=== PATIENT | female | born 1950 | race Caucasian/White ===

== ENCOUNTER 2023-05-26 13:09 | Inpatient (IN) | payer MEDICARE, OTHER ==
[~2023-05-26] VITALS: Ht 157.5 cm; Wt 66.7 kg
[2023-05-26 14:40] LABS: BASOPHILS % (AUTO) 0.5 % (0.0-2.0); EOSINOPHILS # (AUTO) 0.3 K/uL (0.0-0.7); EOSINOPHILS % (AUTO) 3.9 % (0.0-6.0); HEMATOCRIT 39 % (33-45); HEMOGLOBIN 12.9 g/dL (11.5-14.8); LYMPHOCYTES % (AUTO) 27.6 % (20.0-44.0); MEAN CORPUSCULAR HEMOGLOBIN 29 PG (26.0-33.0); MEAN CORPUSCULAR HGB CONC 33 g/dl (31.0-36.0); MEAN CORPUSCULAR VOLUME 88 fL (82-100); MONOCYTES # (AUTO) 0.7 K/uL (0.1-1.30); MONOCYTES % (AUTO) 9.7 % (2.0-12.0); NEUTROPHILS # (AUTO) 4.1 K/uL (1.8-8.9); NEUTROPHILS % (AUTO) 58.3 % (43.0-81.0); PLATELET COUNT (AUTO) 216 K/uL (150-450); RED CELL DISTRIBUTION WIDTH 14.4 % (11.5-15.0); WHITE BLOOD COUNT (AUTO) 7.1 K/uL (4.3-11.0)
[2023-05-26 14:51] LABS: CALCIUM, SERUM 9.6 mg/dL (8.5-10.1); CARBON DIOXIDE 25 mmol/L (21-32); CHLORIDE 101 mmol/L (98-107); CREATININE 0.7 mg/dL (0.6-1.3); GLUCOSE 196 mg/dL (74-106); POTASSIUM 3.8 mmol/L (3.5-5.1); SODIUM SERUM 137 mmol/L (136-145); UREA NITROGEN, BLOOD 19 mg/dL (7-18)
[2023-05-26 15:06] LABS: ALANINE AMINOTRANSFERASE 51 U/L (12-78); ALBUMIN 3.6 g/dL (3.4-5.0); ALKALINE PHOSPHATASE 79 U/L (46-116); ASPARTATE AMINOTRANSFERASE 29 U/L (15-37); BILIRUBIN,DIRECT 0.1 mg/dL (0.0-0.2); BILIRUBIN,TOTAL 0.4 mg/dL (0.2-1.0); LIPASE 22 U/L (16-77); TOTAL PROTEIN, SERUM 7.4 g/dL (6.4-8.2)
[2023-05-26 15:07] LABS: APPEARANCE,URINE CLEAR (CLEAR); BILIRUBIN,URINE NEGATIVE (NEGATIVE); BLOOD, URINE NEGATIVE Ery/uL (NEGATIVE); COLOR,URINE YELLOW (YELLOW); KETONES,URINE NEGATIVE (NEGATIVE); LEUKOCYTE ESTERASE ,URINE NEGATIVE (NEGATIVE); NITRITE, URINE NEGATIVE (NEGATIVE); PROTEIN,URINE NEGATIVE (NEGATIVE); UGLUCOSE 3+ mg/dL (NEGATIVE); UROBILINOGEN,URINE 0.2 EU/dL (0.2)
[2023-05-26 15:21] LABS: INR 0.97 (0.91-1.10); PARTIAL THROMBOPLASTIN TIME 27.1 SEC (24.3-34.3); PROTHROMBIN TIME 10.3 SECS (9.2-11.1)
[2023-05-26 15:23] LABS: ACETAMINOPHEN <10 ug/ml (10-30); ALCOHOL, BLOOD 2 mg/dL (0-10); SALICYLATE 3.8 mg/dL (2.8-20.0)
[2023-05-26] MEDS ORDERED: EMPA25TA PO (15:58)
[2023-05-26] MEDS ORDERED: BISA10SU11 RC (15:58)
[2023-05-26] MEDS ORDERED: MAGN400O6 PO (15:58)
[2023-05-26] MEDS ORDERED: GABA600T12 PO (15:58)
[2023-05-26] MEDS ORDERED: ACET-868 PO (15:58)
[2023-05-26] MEDS ORDERED: NA P133E RC (15:58)
[2023-05-26] MEDS ORDERED: FENO54TA PO (15:58)
[2023-05-26] MEDS ORDERED: INSU100V7 SQ (15:58)
[2023-05-26] MEDS ORDERED: LORA-258 PO (15:58)
[2023-05-26] MEDS ORDERED: BUSP10TA3 PO (15:58)
[2023-05-26] MEDS ORDERED: LISI10TA29 PO (15:58)
[2023-05-26] MEDS ORDERED: SERT50TA PO (15:58)
[2023-05-26] MEDS ORDERED: DOCU100C36 PO (15:58)
[2023-05-26] MEDS ORDERED: INSU100V42 SQ (15:58)
[2023-05-26] MEDS ORDERED: BENZ1LOZ58 PO (15:59)
[2023-05-26] MEDS ORDERED: MAG-5 PO (15:59)
[2023-05-26 16:36] LABS: ADD URINE CULTURE NO; BACTERIA,URINE None seen /HPF (None Seen); RBC,URINE 0-2 /HPF (0-2); SQUAMOUS EPITHELIAL CELL,UR 0-2 /HPF (None Seen); WBC,URINE 0-2 /HPF (0-3)
[2023-05-26 18:22] VITALS: BP 127/72; TEMP 97.9; O2SAT 95
[2023-05-26] MEDS ORDERED: DEXTROSE 50%-WATER 50 ML DISP.SYRIN IV PRN (19:30)
[2023-05-26] MEDS ORDERED: Z GUARD REMEDY 4 OZ OINT TP PRN (19:30)
[2023-05-26] MEDS: IV D5/0.45 NACL 1,000 ML IV PRN (19:43)
[2023-05-26] MEDS: MAG HYDROX/AL HYDROX/SIMETH 30 ML UDC PO PRN (19:45)
[2023-05-26 20:00] VITALS: BP 116/89; TEMP 98.1; O2SAT 94
[2023-05-26] MEDS: ENOXAPARIN SODIUM 40 MG/0.4 ML DISP.SYRIN SQ SCH (20:20)
[2023-05-26] MEDS: LORAZEPAM 0.5 MG TABLET PO PRN (20:50)
[2023-05-26] MEDS: BLOOD SUGAR DIAGNOSTIC 1 EACH STRIP VI SCH (21:15)
[2023-05-26] MEDS: INSULIN GLARGINE, 100 UNIT/ML CARTRIDGE SQ SCH (21:19)
[2023-05-26] MEDS: *INSULIN REGULAR(HUMULIN R)HUM 100 UNIT/ML VIAL SQ PRN (21:20)
[2023-05-26 23:16] LABS: AMPHETAMINE, URINE NEGATIVE (NEGATIVE); BARBITURATE, URINE NEGATIVE (NEGATIVE); BENZODIAZEPINE, URINE NEGATIVE (NEGATIVE); CANNABINOID, URINE NEGATIVE (NEGATIVE); COCCAINE, URINE NEGATIVE (NEGATIVE); OPIATE, URINE NEGATIVE (NEGATIVE); PHENCYCLIDINE SCREEN,URINE NEGATIVE (NEGATIVE)
[2023-05-27] MEDS: INSULIN REGULAR, HUMAN 100 UNIT/ML 3 ML VIAL SQ PRN (06:32)
[2023-05-27 06:39] LABS: BASOPHILS % (AUTO) 0.5 % (0.0-2.0); EOSINOPHILS # (AUTO) 0.4 K/uL (0.0-0.7); EOSINOPHILS % (AUTO) 6.8 % (0.0-6.0); HEMATOCRIT 37 % (33-45); HEMOGLOBIN 12.5 g/dL (11.5-14.8); LYMPHOCYTES # (AUTO) 2.3 K/uL (0.8-4.8); LYMPHOCYTES % (AUTO) 38.6 % (20.0-44.0); MEAN CORPUSCULAR HEMOGLOBIN 30 PG (26.0-33.0); MEAN CORPUSCULAR HGB CONC 34 g/dl (31.0-36.0); MEAN CORPUSCULAR VOLUME 89 fL (82-100); MONOCYTES # (AUTO) 0.7 K/uL (0.1-1.30); MONOCYTES % (AUTO) 11.5 % (2.0-12.0); NEUTROPHILS # (AUTO) 2.5 K/uL (1.8-8.9); NEUTROPHILS % (AUTO) 42.6 % (43.0-81.0); PLATELET COUNT (AUTO) 213 K/uL (150-450); RED BLOOD CELL COUNT(AUTO) 4.19 MIL/uL (4.0-5.2); RED CELL DISTRIBUTION WIDTH 14.3 % (11.5-15.0)
[2023-05-27 06:50] LABS: CHOLESTEROL 248 mg/dL (<200); HDL CHOLESTEROL 34 mg/dL (40-60); LDL 131 mg/dL (0-99); TRIGLYCERIDES 478 mg/dL (30-150)
[2023-05-27 07:00] VITALS: BP 129/104; TEMP 98.4; O2SAT 97
[2023-05-27 07:22] LABS: CALCIUM, SERUM 9.4 mg/dL (8.5-10.1); CARBON DIOXIDE 24 mmol/L (21-32); CHLORIDE 102 mmol/L (98-107); CREATININE 0.5 mg/dL (0.6-1.3); GLUCOSE 225 mg/dL (74-106); PHOSPHORUS 3.8 mg/dL (2.5-4.9); POTASSIUM 3.8 mmol/L (3.5-5.1); SODIUM SERUM 137 mmol/L (136-145); UREA NITROGEN, BLOOD 19 mg/dL (7-18)
[2023-05-27] MEDS ORDERED: busPIRone HCL 10 MG TABLET PO SCH (09:00)
[2023-05-27] MEDS: GABAPENTIN 300 MG CAPSULE PO SCH (10:04)
[2023-05-27] MEDS: busPIRone 5 MG TABLET PO SCH (10:04)
[2023-05-27] MEDS: DOCUSATE SODIUM 100 MG CAPSULE PO SCH (10:04)
[2023-05-27] MEDS: SERTRALINE HCL 50 MG TABLET PO SCH (10:04)
[2023-05-27] MEDS: LISINOPRIL (10MG) 10 MG TABLET PO SCH (10:04)
[2023-05-27] MEDS: EMPAGLIFLOZIN 25 MG TABLET PO SCH (10:07)
[2023-05-27] MEDS: ONDANSETRON HCL/PF 4 MG/2 ML VIAL IVP PRN (10:28)
[2023-05-27] MEDS: CALCIUM CARBONATE 500 MG TAB.CHEW PO SCH (14:10)
[2023-05-27 16:00] VITALS: BP 147/97; TEMP 98.6; O2SAT 97
[2023-05-27] MEDS: ATORVASTATIN 10 MG TABLET PO SCH (21:24)
[2023-05-27 21:56] VITALS: BP 137/83; TEMP 99; O2SAT 97
[2023-05-28 07:00] VITALS: BP 137/81; TEMP 97.3; O2SAT 94
[2023-05-28 16:00] VITALS: BP 166/95; TEMP 99; O2SAT 94
[2023-05-28] MEDS: ACETAMINOPHEN 325 MG TABLET PO PRN (17:29)
[2023-05-28 20:00] VITALS: BP 121/81; TEMP 97.8; O2SAT 93
[2023-05-29 08:00] VITALS: BP 116/72; TEMP 98.2; O2SAT 97
[2023-05-29 09:11] VITALS: BP 116/92
== END 2023-05-29 15:20 | DRG 641 ==
LOC: ER 13:11 → TELE 17:13 → MED 21:57
PROVIDERS: ADMIT Nurse Practitioner Acute Care; ATTEND Nurse Practitioner Acute Care
DX: R62.7 Adult failure to thrive (principal); F03.94 Unspecified dementia, unspecified severity, with anxiety; E86.0 Dehydration; E78.5 Hyperlipidemia, unspecified; F31.9 Bipolar disorder, unspecified; I10 Essential (primary) hypertension; Z79.4 Long term (current) use of insulin; Z79.899 Other long term (current) drug therapy; Z90.11 Acquired absence of right breast and nipple; F41.9 Anxiety disorder, unspecified; R10.9 Unspecified abdominal pain; Z79.84 Long term (current) use of oral hypoglycemic drugs; R53.1 Weakness; E11.65 Type 2 diabetes mellitus with hyperglycemia; Z68.26 Body mass index [BMI] 26.0-26.9, adult; E11.42 Type 2 diabetes mellitus with diabetic polyneuropathy; Z88.0 Allergy status to penicillin
CPT/HCPCS: 36415; 70450-TC; 80048-TC; 80061-TC; 80076-TC; 81001; 82962-TC; 83690-TC; 83735-TC; 84100-TC; 85025-TC; 85730-TC; 97112-TC; 97116-TC; 97530-TC; A4223; G0378; G0480; J1650; J1815; J2405; J3490

== ENCOUNTER 2023-12-14 13:01 | Inpatient (IN) | payer MEDICARE, OTHER ==
[~2023-12-14] VITALS: Ht 157.5 cm; Wt 66.2 kg
[~2023-12-14 13:01] MED LIST: ACET-868 PO; BENZ1LOZ58 PO; BISA10SU11 RC; BUSP10TA3 PO; DOCU100C36 PO; EMPA25TA PO; FENO54TA PO; GABA600T12 PO; INSU100V42 SQ; INSU100V7 SQ; LISI10TA29 PO; LORA-258 PO; MAG-5 PO; MAGN400O6 PO; NA P133E RC; SERT50TA PO
[2023-12-14 14:16] LABS: BASOPHILS % (AUTO) 0.5 % (0.0-2.0); EOSINOPHILS # (AUTO) 0.3 K/uL (0.0-0.7); EOSINOPHILS % (AUTO) 4.4 % (0.0-6.0); HEMATOCRIT 40 % (33-45); HEMOGLOBIN 13.2 g/dL (11.5-14.8); LYMPHOCYTES # (AUTO) 2.9 K/uL (0.8-4.8); LYMPHOCYTES % (AUTO) 41.2 % (20.0-44.0); MEAN CORPUSCULAR HEMOGLOBIN 27 PG (26.0-33.0); MEAN CORPUSCULAR HGB CONC 33 g/dl (31.0-36.0); MEAN CORPUSCULAR VOLUME 84 fL (82-100); MONOCYTES # (AUTO) 0.6 K/uL (0.1-1.30); MONOCYTES % (AUTO) 8.9 % (2.0-12.0); NEUTROPHILS # (AUTO) 3.2 K/uL (1.8-8.9); PLATELET COUNT (AUTO) 228 K/uL (150-450); RED BLOOD CELL COUNT(AUTO) 4.82 MIL/uL (4.0-5.2); RED CELL DISTRIBUTION WIDTH 14.5 % (11.5-15.0); WHITE BLOOD COUNT (AUTO) 7.1 K/uL (4.3-11.0)
[2023-12-14] MEDS ORDERED: INSU100I4 SQ (14:26)
[2023-12-14] MEDS ORDERED: HYDR-500 PO (14:26)
[2023-12-14] MEDS ORDERED: POVI3780 TP (14:26)
[2023-12-14] MEDS ORDERED: GLUC1KIT IJ (14:26)
[2023-12-14] MEDS ORDERED: MAG HYDROX/AL HYDROX/SIMETH 30 ML UDC PO PRN (14:30)
[2023-12-14] MEDS ORDERED: MAGNESIUM HYDROXIDE 30 ML UDC PO PRN (14:30)
[2023-12-14] MEDS: IV NS 0.9% 1,000 ML BAG IV ONE (14:30)
[2023-12-14] MEDS ORDERED: Z GUARD REMEDY 4 OZ OINT TP PRN (14:30)
[2023-12-14 14:37] LABS: LACTIC ACID 1.6 mmol/L (0.4-2.0)
[2023-12-14 15:02] LABS: APPEARANCE,URINE CLEAR (CLEAR); BILIRUBIN,URINE NEGATIVE (NEGATIVE); BLOOD, URINE NEGATIVE Ery/uL (NEGATIVE); COLOR,URINE YELLOW (YELLOW); KETONES,URINE NEGATIVE (NEGATIVE); LEUKOCYTE ESTERASE ,URINE NEGATIVE (NEGATIVE); NITRITE, URINE NEGATIVE (NEGATIVE); PH,URINE 5.5 (5.0-8.0); PROTEIN,URINE NEGATIVE (NEGATIVE); UGLUCOSE 3+ mg/dL (NEGATIVE); UROBILINOGEN,URINE 0.2 EU/dL (0.2)
[2023-12-14 15:13] LABS: ADD URINE CULTURE NO; BACTERIA,URINE None seen /HPF (None Seen); RBC,URINE 0-2 /HPF (0-2); SQUAMOUS EPITHELIAL CELL,UR 0-2 /HPF (None Seen); WBC,URINE 0-2 /HPF (0-3)
[2023-12-14 15:14] LABS: ALANINE AMINOTRANSFERASE 29 U/L (12-78); ALBUMIN 3.3 g/dL (3.4-5.0); ALKALINE PHOSPHATASE 76 U/L (46-116); ASPARTATE AMINOTRANSFERASE 23 U/L (15-37); BILIRUBIN,TOTAL 0.3 mg/dL (0.2-1.0); CALCIUM, SERUM 9.5 mg/dL (8.5-10.1); CARBON DIOXIDE 23 mmol/L (21-32); CHLORIDE 102 mmol/L (98-107); CREATININE 0.6 mg/dL (0.6-1.3); GLUCOSE 244 mg/dL (74-106); POTASSIUM 4.1 mmol/L (3.5-5.1); SODIUM SERUM 135 mmol/L (136-145); TOTAL PROTEIN, SERUM 7.7 g/dL (6.4-8.2); UREA NITROGEN, BLOOD 26 mg/dL (7-18)
[2023-12-14] MEDS ORDERED: NA PHOS,M-B/NA PHOS,DI-BA 1 EA ENEMA RC PRN (17:00)
[2023-12-14] MEDS ORDERED: busPIRone HCL 10 MG TABLET PO SCH (17:00)
[2023-12-14] MEDS: SERTRALINE HCL 50 MG TABLET PO SCH (17:00)
[2023-12-14] MEDS ORDERED: BISACODYL SUPP (10 MG) 10 MG/SUPP.RECT SUPP.RECT RC PRN (17:00)
[2023-12-14] MEDS: BLOOD SUGAR DIAGNOSTIC 1 EACH STRIP VI SCH (17:30)
[2023-12-14] MEDS ORDERED: DEXTROSE 50%-WATER 50 ML DISP.SYRIN IV PRN ×2 (17:30)
[2023-12-14] MEDS ORDERED: INSULIN REGULAR, HUMAN 100 UNIT/ML 3 ML VIAL SQ PRN (17:30)
[2023-12-14] MEDS: BLOOD SUGAR DIAGNOSTIC 1 EACH STRIP IN SCH (17:30)
[2023-12-14 20:00] VITALS: BP 127/85; TEMP 98.1; O2SAT 93
[2023-12-14] MEDS: LORAZEPAM 0.5 MG TABLET PO PRN (20:34)
[2023-12-14] MEDS: INSULIN REGULAR, HUMAN 100 UNIT/ML 3 ML VIAL SQ PRN (21:45)
[2023-12-15] MEDS: ACETAMINOPHEN 325 MG TABLET PO PRN ×2 (00:01→19:48)
[2023-12-15] MEDS: IV NS 0.9% 1,000 ML IV PRN (01:23)
[2023-12-15 06:58] LABS: BASOPHILS % (AUTO) 0.4 % (0.0-2.0); EOSINOPHILS # (AUTO) 0.4 K/uL (0.0-0.7); EOSINOPHILS % (AUTO) 5.4 % (0.0-6.0); HEMATOCRIT 38 % (33-45); HEMOGLOBIN 12.2 g/dL (11.5-14.8); LYMPHOCYTES # (AUTO) 3.9 K/uL (0.8-4.8); LYMPHOCYTES % (AUTO) 52.1 % (20.0-44.0); MEAN CORPUSCULAR HEMOGLOBIN 27 PG (26.0-33.0); MEAN CORPUSCULAR HGB CONC 32 g/dl (31.0-36.0); MEAN CORPUSCULAR VOLUME 84 fL (82-100); MONOCYTES # (AUTO) 0.7 K/uL (0.1-1.30); MONOCYTES % (AUTO) 9.5 % (2.0-12.0); NEUTROPHILS # (AUTO) 2.4 K/uL (1.8-8.9); NEUTROPHILS % (AUTO) 32.6 % (43.0-81.0); PLATELET COUNT (AUTO) 214 K/uL (150-450); RED BLOOD CELL COUNT(AUTO) 4.54 MIL/uL (4.0-5.2); RED CELL DISTRIBUTION WIDTH 14.1 % (11.5-15.0); WHITE BLOOD COUNT (AUTO) 7.5 K/uL (4.3-11.0)
[2023-12-15 07:17] LABS: CALCIUM, SERUM 9.1 mg/dL (8.5-10.1); CARBON DIOXIDE 19 mmol/L (21-32); CHLORIDE 103 mmol/L (98-107); CREATININE 0.7 mg/dL (0.6-1.3); GLUCOSE 283 mg/dL (74-106); MAGNESIUM 1.8 mg/dL (1.8-2.4); PHOSPHORUS 3.2 mg/dL (2.5-4.9); POTASSIUM 3.9 mmol/L (3.5-5.1); SODIUM SERUM 138 mmol/L (136-145); UREA NITROGEN, BLOOD 21 mg/dL (7-18)
[2023-12-15 07:30] VITALS: BP 168/86; TEMP 98.6; O2SAT 92
[2023-12-15] MEDS: GABAPENTIN 300 MG CAPSULE PO SCH (08:22)
[2023-12-15] MEDS: DOCUSATE SODIUM 100 MG CAPSULE PO SCH (08:22)
[2023-12-15] MEDS: busPIRone 5 MG TABLET PO SCH (08:22)
[2023-12-15] MEDS: LISINOPRIL (10MG) 10 MG TABLET PO SCH (08:23)
[2023-12-15] MEDS: MAG HYDROX/AL HYDROX/SIMETH 30 ML UDC PO PRN (09:19)
[2023-12-15 16:02] VITALS: BP 130/79; TEMP 98.4; O2SAT 96
[2023-12-15 20:00] VITALS: BP 126/79; TEMP 98.2; O2SAT 96
[2023-12-15] MEDS: ONDANSETRON HCL/PF 4 MG/2 ML VIAL IVP PRN (20:11)
[2023-12-15] MEDS: *INSULIN REGULAR(HUMULIN R)HUM 100 UNIT/ML VIAL SQ PRN (22:39)
[2023-12-16 06:49] LABS: BASOPHILS % (AUTO) 0.4 % (0.0-2.0); EOSINOPHILS # (AUTO) 0.3 K/uL (0.0-0.7); EOSINOPHILS % (AUTO) 4.3 % (0.0-6.0); HEMATOCRIT 42 % (33-45); HEMOGLOBIN 13.2 g/dL (11.5-14.8); LYMPHOCYTES # (AUTO) 3.5 K/uL (0.8-4.8); LYMPHOCYTES % (AUTO) 46.2 % (20.0-44.0); MEAN CORPUSCULAR HEMOGLOBIN 27 PG (26.0-33.0); MEAN CORPUSCULAR HGB CONC 32 g/dl (31.0-36.0); MEAN CORPUSCULAR VOLUME 85 fL (82-100); MONOCYTES # (AUTO) 0.7 K/uL (0.1-1.30); MONOCYTES % (AUTO) 9.8 % (2.0-12.0); NEUTROPHILS % (AUTO) 39.3 % (43.0-81.0); PLATELET COUNT (AUTO) 230 K/uL (150-450); RED BLOOD CELL COUNT(AUTO) 4.89 MIL/uL (4.0-5.2); RED CELL DISTRIBUTION WIDTH 14.2 % (11.5-15.0); WHITE BLOOD COUNT (AUTO) 7.6 K/uL (4.3-11.0)
[2023-12-16 07:00] VITALS: BP 111/75; TEMP 98.2; O2SAT 93
[2023-12-16 07:05] LABS: CARBON DIOXIDE 21 mmol/L (21-32); CHLORIDE 105 mmol/L (98-107); CREATININE 0.6 mg/dL (0.6-1.3); GLUCOSE 178 mg/dL (74-106); POTASSIUM 3.9 mmol/L (3.5-5.1); SODIUM SERUM 140 mmol/L (136-145); UREA NITROGEN, BLOOD 25 mg/dL (7-18)
[2023-12-16 16:00] VITALS: BP 104/71; TEMP 98.2; O2SAT 95
[2023-12-16] MEDS: MAGNESIUM HYDROXIDE 30 ML UDC PO PRN (16:25)
[2023-12-16 20:00] VITALS: BP 106/64; TEMP 97.8; O2SAT 97
[2023-12-17] MEDS: CALCIUM CARBONATE 500 MG TAB.CHEW PO ONE (02:49)
[2023-12-17] MEDS ORDERED: LOPERAMIDE HCL (2 MG CAP) 2 MG CAPSULE PO PRN (03:00)
[2023-12-17 08:00] VITALS: TEMP 97.8; O2SAT 97
[2023-12-17 08:01] VITALS: BP 141/85
[2023-12-17 08:55] VITALS: BP 140/90
== END 2023-12-17 15:33 | DRG 640 ==
LOC: ER 13:19 → MED 17:48
PROVIDERS: ADMIT Internal Medicine; ATTEND Internal Medicine
DX: E86.0 Dehydration (principal); G93.41 Metabolic encephalopathy; E44.0 Moderate protein-calorie malnutrition; F03.93 Unspecified dementia, unspecified severity, with mood disturbance; R53.1 Weakness; E87.1 Hypo-osmolality and hyponatremia; I10 Essential (primary) hypertension; Z79.84 Long term (current) use of oral hypoglycemic drugs; E11.40 Type 2 diabetes mellitus with diabetic neuropathy, unspecified; E86.1 Hypovolemia; E88.09 Other disorders of plasma-protein metabolism, not elsewhere classified; F32.9 Major depressive disorder, single episode, unspecified; Z79.4 Long term (current) use of insulin; Z88.0 Allergy status to penicillin; Z68.26 Body mass index [BMI] 26.0-26.9, adult
CPT/HCPCS: 36415; 71045-TC; 80048-TC; 80076-TC; 81001; 82962-TC; 83605-TC; 83735-TC; 84100-TC; 84484-TC; 85025-TC; 87040-TC; 87086-TC; A4223; G0378; J1815; J2405; J7030

== ENCOUNTER 2024-10-02 14:39 | Inpatient (IN) | payer MEDICARE, OTHER ==
[~2024-10-02] VITALS: Ht 154.9 cm; Wt 69.4 kg
[~2024-10-02 14:39] MED LIST changes: +GLUC1KIT SQ; +HYDR-500 PO; +INSU100I4 SQ; +POVI3780 TP
[2024-10-02] MEDS: IV NS 0.9% 1,000 ML BAG IV ONE (15:00)
[2024-10-02 15:49] LABS: BASOPHILS # (AUTO) 0.1 K/uL (0.0-0.2); BASOPHILS % (AUTO) 0.6 % (0.0-2.0); EOSINOPHILS % (AUTO) 0.2 % (0.0-6.0); HEMATOCRIT 38 % (33-45); HEMOGLOBIN 12.7 g/dL (11.5-14.8); LYMPHOCYTES # (AUTO) 1.7 K/uL (0.8-4.8); MEAN CORPUSCULAR HEMOGLOBIN 29 PG (26.0-33.0); MEAN CORPUSCULAR HGB CONC 33 g/dl (31.0-36.0); MEAN CORPUSCULAR VOLUME 86 fL (82-100); MONOCYTES # (AUTO) 1.2 K/uL (0.1-1.30); MONOCYTES % (AUTO) 8.5 % (2.0-12.0); NEUTROPHILS # (AUTO) 11.2 K/uL (1.8-8.9); NEUTROPHILS % (AUTO) 78.7 % (43.0-81.0); PLATELET COUNT (AUTO) 178 K/uL (150-450); RED BLOOD CELL COUNT(AUTO) 4.39 MIL/uL (4.0-5.2); RED CELL DISTRIBUTION WIDTH 15.3 % (11.5-15.0); WHITE BLOOD COUNT (AUTO) 14.2 K/uL (4.3-11.0)
[2024-10-02 16:02] LABS: INR 0.99 (0.91-1.10); PARTIAL THROMBOPLASTIN TIME 28.5 SEC (24.3-34.3); PROTHROMBIN TIME 10.5 SECS (9.2-11.1)
[2024-10-02] MEDS ORDERED: CLOT15CR5 TP (16:08)
[2024-10-02] MEDS ORDERED: IBUP-1955 PO (16:08)
[2024-10-02] MEDS ORDERED: FENO145T21 PO (16:08)
[2024-10-02] MEDS ORDERED: LACT10SO58 PO (16:08)
[2024-10-02] MEDS ORDERED: CLON0.1T PO (16:08)
[2024-10-02] MEDS ORDERED: BUSP7.5T7 PO (16:08)
[2024-10-02 16:09] LABS: LACTIC ACID 0.9 mmol/L (0.4-2.0)
[2024-10-02 16:43] LABS: CALCIUM, SERUM 9.6 mg/dL (8.5-10.1); CARBON DIOXIDE 20 mmol/L (21-32); CHLORIDE 99 mmol/L (98-107); CREATININE 1.2 mg/dL (0.6-1.3); GLUCOSE 352 mg/dL (74-106); POTASSIUM 4.2 mmol/L (3.5-5.1); SODIUM SERUM 135 mmol/L (136-145); UREA NITROGEN, BLOOD 34 mg/dL (7-18)
[2024-10-02 16:49] LABS: ALANINE AMINOTRANSFERASE 28 U/L (12-78); ALBUMIN 3.3 g/dL (3.4-5.0); ALKALINE PHOSPHATASE 76 U/L (46-116); ASPARTATE AMINOTRANSFERASE 19 U/L (15-37); BILIRUBIN,DIRECT 0.2 mg/dL (0.0-0.2); BILIRUBIN,TOTAL 0.6 mg/dL (0.2-1.0); TOTAL PROTEIN, SERUM 7.7 g/dL (6.4-8.2)
[2024-10-02 17:58] LABS: APPEARANCE,URINE CLEAR (CLEAR); BILIRUBIN,URINE 1+ (NEGATIVE); BLOOD, URINE TRACE-INTA Ery/uL (NEGATIVE); COLOR,URINE YELLOW (YELLOW); KETONES,URINE 1+ mg/dL (NEGATIVE); LEUKOCYTE ESTERASE ,URINE NEGATIVE (NEGATIVE); NITRITE, URINE NEGATIVE (NEGATIVE); PROTEIN,URINE NEGATIVE (NEGATIVE); UGLUCOSE 3+ mg/dL (NEGATIVE); UROBILINOGEN,URINE 0.2 EU/dL (0.2)
[2024-10-02 18:13] LABS: ADD URINE CULTURE YES; BACTERIA,URINE Few /HPF (None Seen); SQUAMOUS EPITHELIAL CELL,UR Moderate /HPF (None Seen); YEAST,URINE Few /HPF (None Seen)
[2024-10-02] MEDS ORDERED: Z GUARD REMEDY 4 OZ OINT TP PRN (18:30)
[2024-10-02] MEDS ORDERED: ONDANSETRON HCL/PF 4 MG/2 ML VIAL IVP PRN (18:30)
[2024-10-02] MEDS ORDERED: DEXTROSE 50%-WATER 50 ML DISP.SYRIN IV PRN (18:30)
[2024-10-02 21:50] VITALS: BP 99/62; TEMP 98.2; O2SAT 92
[2024-10-02] MEDS: BLOOD SUGAR DIAGNOSTIC 1 EACH STRIP IN SCH (22:00)
[2024-10-02] MEDS: INSULIN REGULAR, HUMAN 100 UNIT/ML 3 ML VIAL SQ PRN (23:43)
[2024-10-03] VITALS (7 sets, daily range): BP systolic 105–156; BP diastolic 66–87; TEMP 97.5–98.6; O2SAT 94–98
[2024-10-03] MEDS: IV NS 0.9% 1,000 ML IV PRN (01:49)
[2024-10-03] MEDS: ACETAMINOPHEN 325 MG TABLET PO PRN (02:45)
[2024-10-03 06:56] LABS: BASOPHILS % (AUTO) 0.2 % (0.0-2.0); EOSINOPHILS # (AUTO) 0.3 K/uL (0.0-0.7); EOSINOPHILS % (AUTO) 2.6 % (0.0-6.0); HEMATOCRIT 37 % (33-45); HEMOGLOBIN 12.1 g/dL (11.5-14.8); LYMPHOCYTES # (AUTO) 1.6 K/uL (0.8-4.8); LYMPHOCYTES % (AUTO) 13.5 % (20.0-44.0); MEAN CORPUSCULAR HEMOGLOBIN 28 PG (26.0-33.0); MEAN CORPUSCULAR HGB CONC 33 g/dl (31.0-36.0); MEAN CORPUSCULAR VOLUME 87 fL (82-100); MONOCYTES # (AUTO) 1.1 K/uL (0.1-1.30); MONOCYTES % (AUTO) 9.7 % (2.0-12.0); NEUTROPHILS # (AUTO) 8.7 K/uL (1.8-8.9); PLATELET COUNT (AUTO) 175 K/uL (150-450); RED BLOOD CELL COUNT(AUTO) 4.27 MIL/uL (4.0-5.2); RED CELL DISTRIBUTION WIDTH 15.5 % (11.5-15.0); WHITE BLOOD COUNT (AUTO) 11.7 K/uL (4.3-11.0)
[2024-10-03 07:09] LABS: CALCIUM, SERUM 8.7 mg/dL (8.5-10.1); CREATININE 0.9 mg/dL (0.6-1.3); MAGNESIUM 2.4 mg/dL (1.8-2.4); PHOSPHORUS 1.7 mg/dL (2.5-4.9); POTASSIUM 3.1 mmol/L (3.5-5.1)
[2024-10-03 07:31] LABS: THYROID STIMULATING HORMONE 0.59 uIU/mL (0.358-3.74)
[2024-10-03] MEDS ORDERED: Magnesium 1GM/D5W 100ML PREMIX 100 ML IV SCH (10:00)
[2024-10-03] MEDS: HYDROCODONE/APAP 5/325MG TABLET PO PRN (10:22)
[2024-10-03] MEDS: PANTOPRAZOLE 40 MG TABLET.DR PO SCH (10:23)
[2024-10-03] MEDS: ENOXAPARIN SODIUM 40 MG/0.4 ML DISP.SYRIN SQ SCH (10:36)
[2024-10-03] MEDS: POTASSIUM CHLORIDE 20 MEQ TAB.PRT.SR PO SCH (10:36)
[2024-10-03] MEDS ORDERED: predniSONE 50 MG TABLET PO ONE (12:00)
[2024-10-03] MEDS: FAMOTIDINE/PF INJ 20 MG/2 ML VIAL IV ONE (13:01)
[2024-10-03] MEDS: diphenhydrAMINE HCL 50 MG/ML VIAL IV ONE (13:01)
[2024-10-03] MEDS: K PHOS NEUTRAL 250 MG TABLET PO ONE (13:02)
[2024-10-03] MEDS: predniSONE 20 MG TABLET PO ONE (13:02)
[2024-10-03] MEDS: MORPHINE SULFATE INJ 2 MG/ML DISP.SYRIN IV ONE (14:26)
[2024-10-03] MEDS: HYDROCORTISONE 1% CREAM 28.35 GM TUBE TP SCH (17:08)
[2024-10-04 06:39] LABS: HEMATOCRIT 37 % (33-45); HEMOGLOBIN 12.3 g/dL (11.5-14.8); LYMPHOCYTES # (AUTO) 1.6 K/uL (0.8-4.8); LYMPHOCYTES % (AUTO) 15.1 % (20.0-44.0); MEAN CORPUSCULAR HEMOGLOBIN 28 PG (26.0-33.0); MEAN CORPUSCULAR HGB CONC 33 g/dl (31.0-36.0); MEAN CORPUSCULAR VOLUME 86 fL (82-100); MONOCYTES # (AUTO) 0.9 K/uL (0.1-1.30); MONOCYTES % (AUTO) 8.3 % (2.0-12.0); NEUTROPHILS # (AUTO) 8.1 K/uL (1.8-8.9); NEUTROPHILS % (AUTO) 76.6 % (43.0-81.0); PLATELET COUNT (AUTO) 217 K/uL (150-450); RED BLOOD CELL COUNT(AUTO) 4.34 MIL/uL (4.0-5.2); RED CELL DISTRIBUTION WIDTH 14.9 % (11.5-15.0); WHITE BLOOD COUNT (AUTO) 10.6 K/uL (4.3-11.0)
[2024-10-04 07:25] LABS: ALBUMIN 3.1 g/dL (3.4-5.0); BILIRUBIN,TOTAL 0.5 mg/dL (0.2-1.0); CALCIUM, SERUM 9.1 mg/dL (8.5-10.1); CREATININE 0.5 mg/dL (0.6-1.3); MAGNESIUM 2.3 mg/dL (1.8-2.4); PHOSPHORUS 1.9 mg/dL (2.5-4.9); POTASSIUM 3.8 mmol/L (3.5-5.1); TOTAL PROTEIN, SERUM 7.6 g/dL (6.4-8.2)
[2024-10-04 08:00] VITALS: BP 153/82; TEMP 99.1; O2SAT 96
[2024-10-04] MEDS: GABAPENTIN 300 MG CAPSULE PO SCH (08:16)
[2024-10-04] MEDS: FAMOTIDINE (20 MG) 20 MG TABLET PO SCH (08:16)
[2024-10-04] MEDS: SERTRALINE HCL 50 MG TABLET PO SCH (08:16)
[2024-10-04] MEDS: DOCUSATE SODIUM 100 MG CAPSULE PO SCH (08:16)
[2024-10-04] MEDS: busPIRone 5 MG TABLET PO SCH (08:16)
[2024-10-04] MEDS: LORAZEPAM 0.5 MG TABLET PO PRN (08:16)
[2024-10-04] MEDS: LISINOPRIL (10MG) 10 MG TABLET PO SCH (08:19)
[2024-10-04] MEDS: EMPAGLIFLOZIN 25 MG TABLET PO SCH (08:43)
[2024-10-04] MEDS: diphenhydrAMINE HCL 25 MG CAPSULE PO ONE (09:53)
[2024-10-04] MEDS: NEUTRA PHOS 1 POWD.PACKET PO SCH (09:54)
[2024-10-04] MEDS: predniSONE 20 MG TABLET PO ONE (09:54)
[2024-10-04 16:00] VITALS: BP 123/70; TEMP 98.6; O2SAT 97
[2024-10-04] MEDS: FLUOCINONIDE 0.05% CREAM 60 GM TUBE TP SCH (16:19)
[2024-10-04 20:00] VITALS: BP 158/86; TEMP 98.4; O2SAT 94
[2024-10-04] MEDS: LACTULOSE 10 G/15 ML UDC (PYXIS) PO SCH (21:53)
[2024-10-04] MEDS: FENOFIBRATE NANOCRYS (145 MG) 145 MG TABLET PO SCH (21:53)
[2024-10-04 23:30] LABS: ABG BASE EXCESS 0.9 mmol/L (-2.0-3.0); ABG OXYGEN SATURATION 94.2 % (94.0-98.0); ABG PCO2 35.2 mmHg (32.0-45.0); ABG PH 7.459 (7.350-7.450); ABG PO2 68.8 mmHg (83.0-108.0); ABG TOTAL HEMOGLOBIN 12.8 G/dL (12.0-16.0); COHb 0.3 % (0.5-1.5); MetHb 0.2 % (0.0-1.5); O2Hb 93.7 % (94.0-97.0); SITE, ABG RIGHT RADIAL
[2024-10-05] MEDS: MUPIROCIN OINT 2% 22 GM TUBE NS SCH (08:58)
[2024-10-05 09:04] VITALS: BP 135/93
== END 2024-10-05 17:53 | DRG 73 ==
LOC: ER 14:45 → TELE 20:59 → MED 10-03 14:57
PROVIDERS: ADMIT Nurse Practitioner Family; ATTEND Nurse Practitioner Family
DX: G90.89 Other disorders of autonomic nervous system (principal); G93.41 Metabolic encephalopathy; E44.1 Mild protein-calorie malnutrition; E87.1 Hypo-osmolality and hyponatremia; F03.93 Unspecified dementia, unspecified severity, with mood disturbance; E86.0 Dehydration; D72.829 Elevated white blood cell count, unspecified; E88.09 Other disorders of plasma-protein metabolism, not elsewhere classified; E11.40 Type 2 diabetes mellitus with diabetic neuropathy, unspecified; E78.5 Hyperlipidemia, unspecified; E87.6 Hypokalemia; I10 Essential (primary) hypertension; Z79.4 Long term (current) use of insulin; Z79.84 Long term (current) use of oral hypoglycemic drugs; Z88.0 Allergy status to penicillin; Z90.11 Acquired absence of right breast and nipple; Z91.81 History of falling; F32.A Depression, unspecified; E83.39 Other disorders of phosphorus metabolism; S90.121A Contusion of right lesser toe(s) without damage to nail, initial encounter; W57.XXXA Bitten or stung by nonvenomous insect and other nonvenomous arthropods, initial encounter; Y93.9 Activity, unspecified; R21 Rash and other nonspecific skin eruption; E11.65 Type 2 diabetes mellitus with hyperglycemia; Y92.129 Unspecified place in nursing home as the place of occurrence of the external cause; Z68.28 Body mass index [BMI] 28.0-28.9, adult
CPT/HCPCS: 36415; 70450-TC; 71045-TC; 72125-TC; 73630-TC; 80048-TC; 80053-TC; 80076-TC; 81001; 82962-TC; 83605-TC; 83735-TC; 84100-TC; 84443-TC; 84484-TC; 85025-TC; 85730-TC; 87040-TC; 87081-TC; 87086-TC; 93307-TC; 97110-TC; 97116-TC; 97530-TC; A4223; G0378; J1200; J1308; J1650; J1815; J2270; J3475; J7030; Q0163